=== PATIENT | female | born 1950 | race Caucasian/White ===

== ENCOUNTER 2017-02-26 07:30 | Inpatient (IN) | payer OTHER, MEDICARE ==
[2017-02-26] VITALS (12 sets, daily range): BP systolic 108–169; BP diastolic 52–88; PULSE 47–62; RESP 11–20; O2SAT 96–100
[~2017-02-26] VITALS: Ht 165.1 cm; Wt 128.8 kg
[~2017-02-26 07:30] MED LIST: ACET-2766 PO; Bupivacaine Liposome 1.3% 20 mL Inj INFILTRATE ONE; CHOL5000 PO; CeFAZolin Inj 3 GM in IV Premix IV ONE; HYDR-4003 PO; HYDR12.5 PO; LEVO150T5 PO; LORA10CA PO; LOSA25TA21 PO; Lactated Ringer's 1,000 ML IV ONE; NPR500T PO; OMEP20TA86 PO; OXYB5TAB10 PO; SIMV40TA5 PO; Vancomycin Inj 1,000 MG in IV Premix 1 EACH IV ONE
[2017-02-26] MEDS ORDERED: Lactated Ringer's 1,000 ML IV ONE ×2 (08:08→12:06)
[2017-02-26] MEDS ORDERED: FLUT9.9S NS (08:51)
--- NOTE | 2017-02-26 09:03 | PCM.HPANE ---
Patient Data Surgeon Admitting Provider: Attending Provider:Sameer Gilmore MD Primary Care Physician:Radha Vallejo Other Provider:Rolando Carpio Anesthesia Reason for Visit Right Knee Osteoarthritis RIGHT KNEE OSTEOARTHRITIS Ht/WT & BMI Height (Feet): 5 Height (Inches): 5.00 Weight (Kilograms): 128.800 Body Mass Index 47.00 Allergies Coded Allergies: tetracycline (Verified Allergy, Severe, ANAPHYLAXIS, THROAT SWELLING, ) Past Anesthesia History Anesthesia History: Positive for:: Anesthesia Reactions (N&V BUT NOT W/ MORE RECENT SURGERIES), Denies:: Abnormal Airway, Difficult Intubation, Fam Anesthesia Reaction, Fam Malignant Hypertherm, Malignant Hyperthermia Diabetes History Hx Diabetes?: No MRSA MRSA: No Medications Hypertension Medication: Yes (LOSARTAN,HCTZ) Reported Medications Fluticasone Propionate (Flonase Allergy Relief)50 Mcg/Actuation [place].susp9.9 Ml NS BID 02/26/17 Acetaminophen (Tylenol Arthritis)650 Mg Tablet.er1,300 Mg PO BID PRN prn 02/19/17 Loratadine (Claritin)10 Mg Gfhoegq08 Mg PO DAILY Ref 0 02/19/17 Naproxen 500 Mg Fcw338 Mg PO BID PRN For Pain Ref 0 12/22/14 Levothyroxine 150 Mcg Lfhakh337 Mcg PO DAILY 30 Days Ref 0 12/22/14 Omeprazole 20 Mg Tablet.dr20 Mg PO DAILY 30 Days 12/22/14 Hydrochlorothiazide 12.5 Mg Fltxljk07.5 Mg PO DAILY 30 Days Ref 0 12/22/14 Losartan Potassium 25 Mg Subkrs21 Mg PO DAILY 12/22/14 Simvastatin 40 Mg Jvtwqk14 Mg PO HS 30 Days Ref 0 12/22/14 Hydrocodone-Acetaminophen 5-325 mg 1 Each Tablet1 Each PO Q4 PRN For Pain Ref 0 12/22/14 Oxybutynin Chloride 5 Mg Tablet5 Mg PO DAILY 30 Days Ref 0 12/22/14 Cholecalciferol (Vitamin D3) (Vitamin D3)5,000 Unit Capsule5,000 Unit PO DAILY 12/22/14 Discontinued Reported Medications Acetaminophen 325 Mg Vvqrqet470 Mg PO 02/19/17 Acetaminophen (Acetaminophen 8 Hour)650 Mg Tablet.er1,300 Mg PO BID 12/22/14 History History of ENT Problems?: Yes HEENT History: Positive for:: Cataracts (starting) Sinus Problem (OCCAS S/P NASAL DISLOCATION) Denies:: Abnormal Airway Difficult Intubation Hearing Problem Denture Type: None Teeth Condition: Missing Teeth Other HEENT Pertinent History: S/P T&A Hx of Heart Problems?: Yes Cardiovascular History: Positive for:: Atrial Fibrillation (HX PAT) Chest Pain (LT ARM PAIN 01/2007 MPS WNL EF 82%) Edema (LOWER LEGS & ANKLES LT>RT) Heart Murmur (ASX GR 1-2/6) Hypertension (HYPERLIPIDEMIA) Irregular Heartbeat (HX OF PAT) Denies:: Thrombophlebitis (VARICOSITIES) Valvular Heart Disease Hx of Respiratory Problem?: Yes Respiratory History: Positive for:: Pneumonia (HX OF-REMOTELY ) Use of C-PAP Machine (SNORES) Hx Neurologic Problems?: Yes Neurological History: Positive for:: Headaches (RARE) Denies:: CVA Hx of GI Problems?: No Hx of Problems?: Yes Genitourinary History: Positive for:: Urinary Tract Infection (REMOTE HX) HX of Peritoneal Dialysis: No Female Hx: Denies:: Currently (S/P ELECTIVE TERMINATION) Endometriosis (S/P HYSTEROSCOPY,ENDOMETRIAL POLYPECTOMY) Skin History: Denies:: History Skin Disorders? Pressure Ulcers Hx Musculoskeletal Problems?: Yes Musculoskeletal History: Positive for:: Degenerative Joint Joint Replacement (S/P LT TKA) Musculoskeletal Trauma (HX FX RT CLAVICLE,FX TOES S/P RT BICEPS TENDON RPR ,BILAT KNEE SCOPES) Osteoarthritis (RT KNEE=CURRENT PROBLEM) Hx of Psycho/Social Problems?: Yes Psycho Social History: Positive for:: Anxiety Hx Depression (REMOTE HX) Hx Surgeries?: Yes (T&A,THYROIDECTOMY,RT BICEPS TENDON RPR,B/L KNEE SCOPES, HYSTEROSCOPY,LT TKA) Hx Any Other Health Problems?: Yes Other History: Positive for:: Hospitalization Thyroid Disease (S/P TOTAL THYROIDECTOMY) Denies:: Cancer Endocrine Disease History Blood Transfusions: Denies:: Blood Transfusions Hx Diabetes: No Hx Alcohol Use: YesHx Substance Use: No (NONE SINCE COLLEGE) Smoking Status: Never Smoker Have You Smoked inLast 12 mo: No Stop/Bang Treated for Sleep Apnea?: No Do You Have a CPAP Machine?: No S-Snoring: Do You Snore Loudly: Yes T-Tired: feel tired, fatigued: No O-Obsered: Observed not breath: No P-Blood Pressure: treated: Yes B- Body Mass Index > 35 kg/m2: Yes A- Age over 50: No N- Neck Large Circumference: Yes G- Gender Male: No CORKY Total Score: 5 CORKY Risk Assessment: High Risk, =/>3 Yes Risk Assessment Category Category 1A: Patient has history of documented sleep apnea, and HAS NOT received any narcotic, sedative or anesthesia administration during this stay. Category 1B: Patient has history of documented sleep apnea, and HAS received any narcotic , sedative or anesthesia administration during this stay Category 2: Patient has SUSPECTED Obstructive Sleep Apnea, and HAS received any narcotic , sedative or anesthesia administration during this stay. Category 3: Patient has SUSPECTED Obstructive Sleep Apnea and HAS NOT received narcotic, sedative or anesthesia administration during this stay. Category 4: Outpatient in Procedural Areas with known sleep apnea or who screen positive for High Risk via the STOP/BANG questionnaire. Exam Exam Vital Signs Vital Signs Date Time Temp Pulse Resp B/P Pulse Ox O2 Delivery O2 Flow Rate FiO2 02/26/17 08:22 35.9 54 19 169/71 98 Room Air General Appearance: Oriented X3 HEENT/AIRWAY: MP 2 Lungs: Normal Air Movement Heart: Regular Rate/Rhythm Meds/Labs/Diagnostics Admission Meds Current Medications Vancomycin/0.9 % Sod Chloride 1000 mg/Premix 200 ml @ 133.333 mls/hr PREOP ONCE IV Last administered on 02/26/17 08:39; Start 02/26/17 at 06:00; Stop 06/05 at 07:29; Status DC Lactated Ringer's (Lr) 1,000 ml @ ud STK-MED ONCE IV Last administered on 02/26 08:08; Start 02/26/17 at 08:08; Stop 02/26/17 at 08:09; Status DC Plan Impression Patient chart reviewed, patient interviewed and anesthestic plan with risks, benefits, and alternatives discussed, and informed consent obtained. ASA Physical Status: ASA3 Severe Disease Anesthetic Plan: Regional Block, SAB Bene/Risks/Altern/Consents: Yes HP Complete Prior to Induction: Yes Carlo Rose MD Feb 26, 2017 09:03
[2017-02-26] MEDS ORDERED: Gentamicin 40 mg/mL 2 mL Inj IRRIGATION ONE (11:08)
[2017-02-26] MEDS ORDERED: Bupivacaine-MPF 0.25% 30 mL Inj INFILTRATE ONE (11:09)
[2017-02-26] MEDS ORDERED: Bupivacaine Liposome 1.3% 20 mL Inj INFILTRATE ONE (11:09)
[2017-02-26] MEDS ORDERED: Lactated Ringer's 500 ML IV PRN (12:26)
[2017-02-26] MEDS ORDERED: Lactated Ringer's 1,000 ML IV SCH (12:26)
[2017-02-26] MEDS ORDERED: MetoCLOpramide 5 mg/mL 2 mL Inj IVPUSH PRN (12:30)
[2017-02-26] MEDS ORDERED: Ondansetron 2 mg/mL 2 mL Inj IVPUSH PRN (12:30)
[2017-02-26] MEDS ORDERED: EPHEDrine Sulfate 50 mg/mL Inj IVPUSH PRN (12:30)
[2017-02-26] MEDS ORDERED: Dexamethasone 4 mg/mL Inj IVPUSH PRN (12:30)
[2017-02-26] MEDS ORDERED: HYDROmorphone 1 mg/mL Inj IVPUSH PRN (12:30)
[2017-02-26] MEDS ORDERED: Phenylephrine 10,000 mCg/mL Inj IVPUSH PRN (12:30)
[2017-02-26] MEDS ORDERED: fentaNYL-PF 50 mCg/mL 2 mL Inj IVPUSH PRN (12:30)
[2017-02-26] MEDS ORDERED: Dexamethasone 4 mg/mL Inj ONE (12:48)
[2017-02-26] MEDS ORDERED: Propofol 10,000 mCg/mL 20 mL Inj ONE (12:48)
[2017-02-26] MEDS ORDERED: Ketamine 10 mg/mL 20 mL Inj ONE (12:48)
[2017-02-26 13:17] LABS: APPEARANCE,URINE HAZY (CLEAR,HAZY); COLOR,URINE STRAW (YELLOW); OCCULT BLOOD,URINE NEGATIVE (NEGATIVE); PH,URINE 5.5 (5.0-8.0); UROBILINOGEN,URINE NORMAL (NORMAL)
--- NOTE | 2017-02-26 13:19 | DRSVH ---
PROCEDURE: X-RAY RIGHT KNEE, ONE OR TWO VIEWS ([id number]) INDICATIONS: check alignment TECHNIQUE: 2 view(s) of the knee acquired. COMPARISON: 06/21/2016 FINDINGS: Bones: Patient is status post knee joint arthroplasty. Hardware components are in expected position s. Visualized bony structures are intact. Soft tissues: Overlying postoperative changes are noted. IMPRESSION: Acute postoperative changes of total right knee arthroplasty. Dictated by: Carlos Almanza M.D. on 02/26/2017 at 13:16 Approved by: Carlos Almanza M.D. on 02/26/2017 at 13:17
--- NOTE | 2017-02-26 13:30 | NUR ---
Arrival to Rm 1022 Pt arrived from PACU to room 1022; A&Ox3, VSS, IV LR infusing at 120/hr; no c/o pain, ice R knee area, R knee covered in maryjane wrap; drain clamped until 1700pm. Will continue to monitor with frequent rounds.
--- NOTE | 2017-02-26 13:34 | PCM.ANEP1 ---
Post Anesthesia PACU Phase 1 Assessment Vital Signs Vital Signs Date Time Temp Pulse Resp B/P Pulse Ox O2 Delivery O2 Flow Rate FiO2 02/26/17 13:05 47 14 125/70 99 Room Air 02/26/17 13:00 36.4 52 15 137/57 96 Room Air 02/26/17 12:45 53 15 127/74 96 Room Air 02/26/17 12:40 52 20 118/64 98 Room Air 02/26/17 12:38 11 98 02/26/17 12:35 50 11 109/53 98 Room Air 02/26/17 12:30 52 12 108/52 96 Room Air 02/26/17 12:25 36.5 55 11 111/88 96 Room Air 02/26/17 08:22 35.9 54 19 169/71 98 Room Air Anesthetic Administered: Regional Block, SAB Level of Alertness: Awake, talking Pain: No Nausea or Vomiting: No CV Function & Hydration Stable: Yes Airway Device: Lungs: Normal Air Movement Dermatome Level: T12 (Symphysis Pubis) PACU Phase 2 Assessment Patient Instructions Provided: N/A Carlo Rose MD Feb 26, 2017 13:34
[2017-02-26] MEDS ORDERED: MetoCLOpramide 5 mg/mL 2 mL Inj IV PRN (14:05)
[2017-02-26] MEDS ORDERED: Ondansetron 2 mg/mL 2 mL Inj IV PRN (14:05)
[2017-02-26] MEDS ORDERED: oxyCODONE-Acetamin 5-325 mg Tablet PO PRN (14:05)
[2017-02-26] MEDS ORDERED: diphenhydrAMINE 25 mg Capsule PO PRN (14:05)
[2017-02-26] MEDS ORDERED: Alum-Mag Hydrox-Simeth 30 mL Suspension PO PRN (14:05)
[2017-02-26] MEDS ORDERED: Magnesium Hydroxide 10 mL Oral Concentration PO PRN (14:05)
[2017-02-26] MEDS ORDERED: LORazepam 0.5 mg Tablet PO PRN (14:05)
[2017-02-26] MEDS ORDERED: Ondansetron 8 mg ODT Tablet PO PRN (14:05)
--- NOTE | 2017-02-26 15:58 | NUR ---
Evaluation completed. Please go to "Notes" then click on "Assessments and Notes" (bottom left corner of screen). Then select appropriate discipline tab on top of screen.
[2017-02-26] MEDS: HYDROcodone-APAP 5-325 mg Tablet PO PRN ×2 (16:14→21:36)
--- NOTE | 2017-02-26 18:28 | NUR ---
Pain Pt c/o post op pain 5/10, R knee/leg area; ppp, warm and good cap refil bilaterally. 1 PO [place] given for pain; per pt effective, pain 3/10. Will continue to monitor with frequent rounds.
--- NOTE | 2017-02-26 23:13 | OP ---
[address] [address] OPERATIVE REPORT PATIENT: REED SMITH : 1950 MR#: [id number] ADMIT: 02/26/2017 JOB ID: [id number] DATE OF SURGERY: 02/26/2017 PREOPERATIVE DIAGNOSIS(ES): Disabling osteoarthritis right knee. POSTOPERATIVE DIAGNOSIS(ES): Disabling osteoarthritis right knee. PROCEDURE: Total knee replacement. SURGEON: Sameer Gilmore MD. FILLER FEEDER: Abi Williamson PA-C. Translator And Interpreter required due to the complexity of the operation. PROCEDURE: Right total knee replacement. INDICATION: This woman has failed conservative treatment. She has ongoing progressive and now significant disability and wishes to proceed with a total knee replacement. She understands and accepts the potential for risks and complications, which include, but is not limited to, infection, thromboembolic, neurovascular events, as well as potential for implant failure. Understanding these, she wishes to proceed. PROCEDURE: The patient was prepped and draped in usual sterile fashion. She is a very large woman and additional time and care was taken in positioning. After appropriate positioning, sterile prepping and draping, and appropriate time-out, an anteromedial approach was made in the knee. The patella was subluxed laterally, cut transversely, sized to a 35. Drill holes were made and patellar protection plate was utilized. Drill hole placed in distal femur, 5 degree valgus and distal femoral cut was made. The femur was sized to an 8 component. Chamfer block was fixed and chamfer cuts were made after appropriate position and rotation of the femoral component. An 8 was trialed and fit excellently. Lug holes were drilled. The tibia was cut with the extramedullary jig. Bone fragment removed. Sized to an E tibial block. Trial reduction was performed. An 11 mm polyethylene produced excellent flexion, extension, balance, range of motion and soft tissue tension. Drill hole and punch was utilized for tibial preparation. Pressurized lavage was followed by pressurized cementation. Excess cement was removed during the curing process and the final construct was assembled. Cut margins were injected with Marcaine and Exparel mix. Betadine dilute lavage according to protocol. Deep Hemovac drain left. Deep closure with #2 Quill followed by a 2-0, 3-0, 4-0 and intracuticular stitch utilized for the final closure. Patient tolerated the procedure well. There were no complications.
[2017-02-27] MEDS ORDERED: Vancomycin Inj 1,000 MG in IV Premix 1 EACH IV ONE (00:15)
[2017-02-27] MEDS: CEFAZOLIN IV SCH ×2 (00:32→11:22)
[2017-02-27] MEDS: PHA MIX IV SCH ×2 (00:32→11:22)
[2017-02-27] MEDS: DEXTROSE 5% IV SCH ×2 (00:32→11:22)
[2017-02-27 01:04] VITALS: BP 126/73; PULSE 54; RESP 18; O2SAT 96
[2017-02-27] MEDS: hydrOXYzine Pamoate 25 mg Capsule PO PRN ×6 (02:15→21:21)
[2017-02-27] MEDS: HYDROcodone-APAP 5-325 mg Tablet PO PRN ×5 (02:15→23:52)
--- NOTE | 2017-02-27 04:28 | NUR ---
Pain/activity Pt reporting pain up to 5/10 and has been taking 1 tab of [place] q4 hrs. Pt did wake up with cramping in right knee and requested Vistaril. Pt now sleeping and appears comfortable. Pt up to side of bed at beginning of shift to dangle feet. Orthos intact and pt has full sensation. ARTEMIO wrap is CDI and hemovac drain intact with sanguinous drainage. Whiteside with pale urine draining to gravity.
[2017-02-27 05:53] VITALS: BP 151/79; PULSE 52; RESP 18; O2SAT 99
[2017-02-27 06:55] LABS: BASOPHILS % (AUTO) 0.1 % (0-3); EOSINOPHILS % (AUTO) 0 % (0-5); MONOCYTES % (AUTO) 6.5 % (4-12); Mean Corpuscular Hemoglobin 27.2 pg (27.0-35.0); Mean Corpuscular Volume 85.1 fL (81-100); Platelet Count 232 bil/L (150-400)
[2017-02-27 07:46] VITALS: BP 162/66; PULSE 50; RESP 18; O2SAT 98
[2017-02-27] MEDS: Pantoprazole 40 mg ER24 Tablet PO SCH (09:57)
[2017-02-27] MEDS: Fluticasone 0.05% 15 Spray/2 Gm 16 Gm Nasal Spray NOSTRIL SCH ×2 (09:58→10:02)
[2017-02-27 11:57] VITALS: BP 113/65; PULSE 54; RESP 18; O2SAT 99
--- NOTE | 2017-02-27 12:51 | PCM.PNORTH ---
Subjective Date of Service: Feb 27, 2017 Visit Information: Reason for Visit Right Knee Osteoarthritis Surgery/Surgery Date R TKA 02/26/17 Post-Op Day # 1 Date of Admission: Feb 26, 2017 at 12:47 Hospital Day # Subjective Patient states she is having pain but tolerable. She states she is hoping she can go tomorrow as she was walking "all over the hallways" with PT. She states she cannot wear compression stockings as "my legs are too fat" and has agreed to use two maryjane wraps from toes to thigh instead. 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 Postop General: No Complaints, No Shortness of Breath Pain Management: PO Objective Exam Objective Sitting up in chair Vital Signs and I/O Vital Sign - Last Date Time Temp Pulse Resp B/P Pulse Ox O2 Delivery O2 Flow Rate FiO2 02/27/17 11:57 36.6 54 18 113/65 99 Room Air Intake and Output 02/26/17 02/26/17 02/27/17 Cumulative From/Thru 15:00 23:00 07:00 02/19/17 11:58 - 02/27/17 05:53 Intake Total 1360 ml 945 ml 1390 ml 3695 ml Output Total 200 ml 900 ml 750 ml 1850 ml Balance 1160 ml 45 ml 640 ml 1845 ml Intake Oral 400 ml 700 ml 1100 ml IV Total 1360 ml 545 ml 690 ml 2595 ml Output Urine Total 100 ml 900 ml 650 ml 1650 ml Drainage Total 100 ml 100 ml Estimated Blood Loss 100 ml 100 ml # Bowel Movements 0 0 Lab & Micro Results Laboratory Tests Test 02/26/17 13:01 02/27/17 06:10 Urine Color Straw (YELLOW) Urine Appearance Hazy (CLEAR,HAZY) Urine pH 5.5 (5.0-8.0) Urine Specific [place] 1.005 (1.003-1.035) Urine Protein Negativemg/dL (NEG,TRACE) Urine Glucose (UA) Negativemg/dL (NEGATIVE) Urine Ketones Negativemg/dL (NEGATIVE) Urine Occult Blood Negative (NEGATIVE) Urine Nitrite Negative (NEGATIVE) Urine Bilirubin Negative (NEGATIVE) Urine Urobilinogen Normalmg/dL (NORMAL) Urine Leukocyte Esterase Negative (NEGATIVE) Urine RBC 0-2/hpf (0-2) Urine WBC 0-5/hpf (0-5) Urine Epithelial Cells Occasional/hpf (NONE-MOD) Urine Crystals None seen (NONE SEEN) Urine Bacteria None/hpf (NONE-FEW) Urine Hyaline Casts None/lpf (NONE) Urine Granular Casts None seen (NONE SEEN) Urine Waxy Casts None seen (NONE SEEN) Urine Red Blood Cell Casts None seen (NONE SEEN) Urine White Blood Cell Casts None seen (NONE SEEN) Urine Mucus None seen (None Seen) Urine Trichomonas None seen (NONE SEEN) Urine Yeast None (NONE SEEN) Urinalysis Comment None Urine Culture Reflexed Not indicated White Blood Count 10.0th/mm3 (3.8-10.1) Red Blood Count 4.04mil/mm3 (3.90-5.20) Hemoglobin 11.0g/dL (12.0-15.6) Hematocrit 34.4% (35.0-46.0) Mean Corpuscular Volume 85.1fL (81-100) Mean Corpuscular Hemoglobin 27.2pg (27.0-35.0) Mean Corpuscular Hemoglobin Concent 32.0% (32.0-37.0) Red Cell Distribution Width 13.6% (12.3-15.4) Platelet Count 232bil/L (150-400) Neutrophils (%) (Auto) 85.0% (40-74) Lymphocytes (%) (Auto) 8.1% (14-46) Monocytes (%) (Auto) 6.5% (4-12) Eosinophils (%) (Auto) 0% (0-5) Basophils (%) (Auto) 0.1% (0-3) Result Diagram: 02/27/17 0610 General Appearance: Alert, Oriented X3, Cooperative, No Acute Distress Extremities: Distal Pulses Palpable, No Compartment Syndrom Noted Postop Sensory Motor: Distal Motor Intact, Movement in Toes, Distal Sensation Intact, NVI Distally SURGICAL WOUND : Wound Location/Description Perioperative dressing clean dry and intact Drain Location Body Site: Knee Wound Drainage Type: Hemovac Activity: Ambulate with PT Assessment & Plan Impression POD#1 right total knee arthroplasty Problems: Plan Weightbearing: Weightbearing as tolerated with a front-wheeled walker DVT prophylaxis: Aspirin 81 mg twice a day 6 weeks Physical therapy for transfers, progressive ambulation, strengthening Wound care: Perioperative dressings will be changed to an island dressing tomorrow. Then wrap leg with double maryjane wraps from toes to thigh for compression. Analgesia: Oral analgesia Discharge plan: Discharge home tomorrow. Start outpatient physical therapy on Sunday. Follow-up plan: In 2 weeks at [facility] with ABILIO for wound check and at [address] Gilmore with x-rays Rhonda Jesus PA-C Feb 27, 2017 12:48
--- NOTE | 2017-02-27 16:16 | NUR ---
Social Work- Brief Note/Multi-Disciplinary Rounds Data: EMR reviewed. Pt is on day 1 of hospitalization for right knee TKA. Pt is POD 1. Pt's insurance is [employer]. Pt's PCP is Radha Vallejo PA-C. Pt's NOK is Ari Sommer, . Pt's readmit risk score is 3-high risk. Per multi-disciplinary rounds with construction code administrator, pt is going to work with PT today. No social work needs identified in rounds. SW met with pt at bedside regarding discharge plan. Pt alert and oriented x3. Pt resides in [place], [place] with her spouse (who is disabled). Pt drives. Pt has no steps inside and 3 steps to enter. Pt's home is ADA accommodating- pt has a walk in shower, raised toilet seats, bath bench, hand held shower, fww, crutches, and cane at home. Pt has history with [facility] after her first knee replacement. Pt has no SNF history. Pt is very motivated. PT worked with pt, pt walked 100 feet with fww. PT recommending HHPT 2-3 times per week. Pt has DPOA paperwork at home, SW encouraged pt to provide a copy to hospital. SW discussed pt's plan at home. Pt's is not able to drive and so until pt is able to drive after her surgery she will be homebound. For this reason, pt had HHPT through [facility] after her first TKA. [facility] SW explained order process and pt is agreeable. ALLYSON recommends HHPT until pt is able to obtain outpt PT services. SW will discuss with Ortho tomorrow. Pt to discharge home with her sister to transport via POV. SW will continue to follow. Assessment: Pt for whom ALLYSON recommends HHPT until she is able to drive to outpt PT. Plan: ALLYSON recommends HHPT until pt is able to obtain outpt PT services. ALLYSON will discuss with Ortho tomorrow. Pt to discharge home with her sister to transport via POV. SW will continue to follow. Tayla Giraldo CUTTER HELPER
[2017-02-27 17:22] VITALS: BP 149/73; PULSE 53; RESP 18; O2SAT 98
--- NOTE | 2017-02-27 17:32 | NUR ---
Whiteside / hemovac Whiteside catheter removed at approx 1330. Pt spontaneously voiding. No complications. Hemovac removed per MD order. Drain removed intact. Minor bleeding at site after removal. Leg continues to be dressed and wrapped in maryjane wrap.
[2017-02-27 19:58] VITALS: BP 135/73; PULSE 56; RESP 18; O2SAT 99
--- NOTE | 2017-02-28 02:43 | NUR ---
Pain During initial assessment, patient needed to use bathroom. Patient ambulated well to , however, on return to bed, pain increased to 8/10 on pain scale. Roxycodone 5mg PO and Vistaril 25mg administered. Patient appeared to be crying with pain due to muscle spasm. Patient requested an additional Vistaril. Ice pack applied. Leg elevated on pillows. VSS. Call light within reach. Care continues.
--- NOTE | 2017-02-28 02:43 | NUR ---
Initial Assessment Correction on time of initial assessment. I assessed patient at 2022.
[2017-02-28 04:58] VITALS: BP 127/75; PULSE 52; RESP 17; O2SAT 98
[2017-02-28 07:40] VITALS: BP 135/76; PULSE 46; RESP 17; O2SAT 100
--- NOTE | 2017-02-28 07:53 | PCM.PNORTH ---
Subjective Date of Service: Feb 28, 2017 Visit Information: Reason for Visit Right Knee Osteoarthritis Surgery/Surgery Date R TKA 02/26/17 Post-Op Day # 2 Date of Admission: Feb 26, 2017 at 12:47 Hospital Day # Subjective Patient did well with physical therapy yesterday and ambulated over 100 feet in the hallways. Last night she had an increase in pain after the block wore off but this morning is doing better. The thigh muscles are sore but manageable with [place]. She would like to go home today. Her is disabled and does not drive. She requests home health physical therapy until she is able to go to outpatient therapy on her own. Since it was her right knee that has surgery , anticipate she will need Home Health PT for 1 month. Postop General: No Complaints, No Shortness of Breath Pain Management: PO Objective Exam Objective Patient is seen sitting up in a chair Vital Signs and I/O Vital Sign - Last Date Time Temp Pulse Resp B/P Pulse Ox O2 Delivery O2 Flow Rate FiO2 02/28/17 04:58 36.4 52 17 127/75 98 Room Air Intake and Output 02/27/17 02/27/17 02/28/17 Cumulative From/Thru 15:00 23:00 07:00 02/19/17 11:58 - 02/28/17 04:58 Intake Total 940 ml 500 ml 5135 ml Output Total 400 ml 270 ml 2520 ml Balance 540 ml 230 ml 2615 ml Intake Oral 940 ml 500 ml 2540 ml IV Total 2595 ml Output Urine Total 400 ml 270 ml 2320 ml Drainage Total 0 ml 100 ml Estimated Blood Loss 100 ml # Voids 1 1 # Bowel Movements 0 0 Result Diagram: 02/27/17 0610 General Appearance: Alert, Oriented X3, Cooperative, No Acute Distress Extremities: Distal Pulses Palpable, No Compartment Syndrom Noted, Tenderness/ Swelling Noted (at knee, as expected) Postop Sensory Motor: Distal Motor Intact, Distal Sensation Intact, NVI Distally SURGICAL WOUND : Drain Location Body Site: Knee Wound Drainage Type: Hemovac Activity: Ambulate with PT Assessment & Plan Impression POD #2 right total knee arthroplasty Problems: Plan Weightbearing: Weightbearing as tolerated with walker DVT prophylaxis: aspirin 325 mg twice a day 6 weeks Physical therapy for transfers, progressive ambulation, therapeutic exercise. Patient is progressing well with physical therapy. Wound care: Dressings changed today to an island dressing Discharge plan: Discharge home today. Start physical therapy next week on Sunday Discharge instructions are reviewed with the patient She has both Percocet and [place] at home and does not feel she needs any new prescriptions at this time. She would like a prescription for Vistaril to help with the muscle spasms of the thigh. She will will also be on aspirin for 6 weeks for DVT prophylaxis. Since the patient's is disabled and cannot drive, home health physical therapy is ordered. Anticipate patient will need home health physical therapy twice a week for 1 month to work on range of motion, therapeutic exercise, progressive ambulation and proprioceptive training. In one month patient will be allowed to drive and at that time she may attend outpatient therapy. Follow-up plan: In 2 weeks at [facility] with ABILIO for wound check and at [address] Gilmore with x-rays Pain Management: Percocet, oxycodone, [place], Vistaril, Toradol VTE Prophylaxis: SCDs, Other (aspirin 325 mg twice a day) Resuscitation Status: CPR: Attempt Resuscitation OmenaAbi Phillips PA-C Feb 28, 2017 07:53
[2017-02-28] MEDS: HYDROcodone-APAP 5-325 mg Tablet PO PRN ×2 (08:13→11:44)
[2017-02-28] MEDS: Pantoprazole 40 mg ER24 Tablet PO SCH (08:14)
[2017-02-28] MEDS: Fluticasone 0.05% 15 Spray/2 Gm 16 Gm Nasal Spray NOSTRIL SCH (08:30)
--- NOTE | 2017-02-28 09:13 | PCM.DIORTH ---
Ortho Discharge Instruction Date of Service: Feb 28, 2017 Dates of Hospitalization Date of Hospital Admission Feb 26, 2017 at 12:47 Providers Admitting Physician: Sameer Gilmore MD Primary Care Physician: Radha Vallejo Attending Physician: Sameer Gilmore MD Diet Discharge Diet: No restrictions Activity Discharge Activity-General: Be up and about, Balance rest and activity, Elevate & ice extremity (ice 6-10 times per day) Right Lower Extremity: Weight Bearing as tolerated Discharge Assist Device: Front Wheeled Walker Dressing and Incisional Care Discharge Dressing Care: Keep dressing clean, dry & intact Discharge Hygiene: May shower (see instructions below), DO NOT soak incision under water (for 2 weeks), NO bathtub, hot tub or whirlpool (for 2 weks) Additional Instructions Discharge Instructions Weightbearing: Weightbearing as tolerated with walker DVT prophylaxis: aspirin 325 mg twice a day 6 weeks Wound care: change dressings in 2 days. Reuse the silver dressing after wetting it with the saline flush, apply a new Island dressing (08/21). The drain site will not any further dressing. Use the silver dressing for 1 more week Wear elastic bandages to help control swelling for 1 month on the surgical leg. Showering: Cover the wound with plastic wrap She has both Percocet and [place] at home and does not feel she needs any new prescriptions at this time. She would like a prescription for Vistaril to help with the muscle spasms of the thigh. She will will also be on aspirin for 6 weeks for DVT prophylaxis. Start physical therapy next week on Sunday. Since the patient's is disabled and cannot drive, home health physical therapy is ordered. Anticipate patient will need home health physical therapy twice a week for 1 month to work on range of motion, therapeutic exercise, progressive ambulation and proprioceptive training. In one month patient will be allowed to drive and at that time she may attend outpatient therapy. Follow Up Plan Follow Up Plan Follow-up plan: In 2 weeks at [facility] with ABILIO for wound check and at [address] Gilmore with x-rays Call your provider for: Fever, Chills, Shortness of breath, Vomitting, Drainage at incision, Wound redness (that is psreading), Increasing pain (for no reason) Abi Williamson PA-C Feb 28, 2017 09:13
--- NOTE | 2017-02-28 09:15 | PCM.DC.ORT ---
Discharge Summary Date of Service: Feb 28, 2017 Date of Hospital Admission: Feb 26, 2017 at 12:47 Date of Surgery: Feb 26, 2017 Date of Discharge: Feb 28, 2017 Reason for Hospitalization: Right knee arthritis Procedures Performed: Right total knee arthroplasty Hospital Course: The patient was admitted to the hospital on 02/26/2017 and underwent the above procedure. Antibiotic prophylaxis consisting of Ancef and vancomycin. The surgeon was Dr. Gilmore. A Whtieside was placed perioperatively. Patient tolerated the procedure well and was transferred to recovery room in stable condition. Whiteside was discontinued on postop day 1. Patient had physical therapy to work on ambulation and transfers. Weightbearing as tolerated with walker. Pain was managed with Dilaudid, Percocet, Vistaril, Toradol, [place]. DVT prophylaxis: Aspirin 325 mg twice a day and SCDs. Patient progressed well with physical therapy and on POD-2 was discharged home with home health physical therapy. Follow-up: at [facility] 2 weeks postop for wound check and at [address] Gilmore with x-ray Diagnosis at Time of Discharge Status post right TKA Problems: Disposition: Discharged home with home health physical therapy Discharge Instructions: Activity Discharge Activity-General: Be up and about, Balance rest and activity, Elevate & ice extremity (ice 6-10 times per day) Right Lower Extremity: Weight Bearing as tolerated Discharge Assist Device: Front Wheeled Walker Dressing and Incisional Care Discharge Dressing Care: Keep dressing clean, dry & intact Discharge Hygiene: May shower (see instructions below), DO NOT soak incision under water (for 2 weeks), NO bathtub, hot tub or whirlpool (for 2 weks) Additional Instructions Discharge Instructions Weightbearing: Weightbearing as tolerated with walker DVT prophylaxis: aspirin 325 mg twice a day 6 weeks Wound care: change dressings in 2 days. Reuse the silver dressing after wetting it with the saline flush, apply a new [place] dressing (08/21). The drain site will not any further dressing. Use the silver dressing for 1 more week Wear elastic bandages to help control swelling for 1 month on the surgical leg. Showering: Cover the wound with plastic wrap She has both Percocet and [place] at home and does not feel she needs any new prescriptions at this time. She would like a prescription for Vistaril to help with the muscle spasms of the thigh. She will will also be on aspirin for 6 weeks for DVT prophylaxis. Start physical therapy next week on Sunday. Since the patient's is disabled and cannot drive, home health physical therapy is ordered. Anticipate patient will need home health physical therapy twice a week for 1 month to work on range of motion, therapeutic exercise, progressive ambulation and proprioceptive training. In one month patient will be allowed to drive and at that time she may attend outpatient therapy. Aspirin (Aspirin) 325 Mg Tablet 325 MG PO BID for 6 weeks after surgery Cholecalciferol (Vitamin D3) (Vitamin D3) 5,000 Unit Capsule 5,000 UNIT PO DAILY Docusate Sodium (Colace) 100 Mg Capsule 100 MG PO BID PRN PRN For Constipation Fluticasone Propionate (Flonase Allergy Relief) 50 Mcg/Actuation [place].susp 9.9 ML NS BID Hydrochlorothiazide (Hydrochlorothiazide) 12.5 Mg Capsule 12.5 MG PO DAILY Hydrocodone-Acetaminophen 5-325 mg (Hydrocodone-Acetaminophen 5-325 mg) 1 Each Tablet 1 EACH PO Q4 PRN PRN For Pain Hydroxyzine Pamoate (HydrOXYzine Pamoate) 25 Mg Capsule 25-50 MG PO Q6H PRN PRN For Restlessness Levothyroxine (Levothyroxine) 150 Mcg Tablet 150 MCG PO DAILY Loratadine (Claritin) 10 Mg Capsule 10 MG PO DAILY Losartan Potassium (Losartan Potassium) 25 Mg Tablet 50 MG PO DAILY Omeprazole (Omeprazole) 20 Mg Tablet.dr 20 MG PO DAILY Oxybutynin Chloride (Oxybutynin Chloride) 5 Mg Tablet 5 MG PO DAILY Simvastatin (Simvastatin) 40 Mg Tablet 40 MG PO Abi Williamson PA-C Feb 28, 2017 09:15
[2017-02-28] MEDS ORDERED: DOCU-41 PO (09:19)
[2017-02-28] MEDS ORDERED: HYDR-3797 PO (09:19)
[2017-02-28] MEDS ORDERED: ASPI325T32 PO (09:19)
[2017-02-28 11:21] VITALS: BP 134/71; PULSE 51; RESP 16; O2SAT 100
--- NOTE | 2017-02-28 11:38 | NUR ---
Social Work- Discharge/Multi-Disciplinary Rounds Data: EMR reviewed. Pt is on day 2 of hospitalization for right knee TKA. Pt is POD 2. Per multi-disciplinary rounds and discussion with Ortho, pt is medically ready for discharge. identified medical need for HHPT twice per week for 4 weeks. ALLYSON acknowledges order. SW and pt spoke about HH yesterday (as pt anticipated that she would need this at discharge) and pt requested referral to [facility] at discharge once TRANSPORTATION DEPARTMENT SUPERVISOR received order. Today, TRANSPORTATION DEPARTMENT SUPERVISOR made referral to [facility] for PT 2 times weekly for 4 weeks. T/C to [facility] regarding pt's discharge. [facility] is able to accept pt onto service but it will be 72 hours until a PT is able to see pt. Ortho provider confirmed that this would be appropriate. [facility] agreeable. F2F completed and faxed to [facility]. Copy placed in pt's chart. Original to be given to [facility]. ALLYSON met with pt at bedside regarding discharge and [facility]. Pt is agreeable to discharge. Pt aware the [facility] will contact her directly to set up a time and she is also aware that it will likely be 72 hours before service begins. Pt agreeable. Pt denied any questions or concerns related to discharge. Pt to discharge home with her sister to transport via POV. No additional discharge needs identified. Assessment: Pt for whom HHPT 2x weekly for 4 weeks is medically necessary Plan: [facility] to begin PT services is 72 hours. F2F provided. Pt to discharge home with her sister to transport via POV. No additional discharge needs identified. Tayla Giraldo, TRANSPORTATION DEPARTMENT SUPERVISOR
[2017-02-28] MEDS: hydrOXYzine Pamoate 25 mg Capsule PO PRN (12:44)
--- NOTE | 2017-02-28 12:48 | NUR ---
Discharge Pt to discharge to home with friend; A&Ox3, able to GARCIA, standing and amb with SBA and FWW. 1 IV access discontinued. Pt reports pain at tolerable level before discharge. Pt has hard copy of Rx's and copy in the charge; pt given written and verbal discharge instructions as well as supplies for dressing changes and states understanding to discharge instructions, medications to be taken, dosages and times and f/u appt. Pt to stop taking Naproxen and Tylenol, no restrictions on diet, activity as tolerated but to rest and balance activity with rest, weight bearing as tolerated and amb with FWW, keep dressing CDI, DO soak incision under water of any kind for 2 weeks, keep dressing site covered for shower, take ASA 325mg BID gfor 6 weeks, dressing change in 2 days, wear elastic bandages to help control swelling for 1 month on surgical leg; no driving for 1 month, PT, f/u appt in 2 weeks then again in 6 weeks with pili Simmons to which pt states understanding. Addendum: 02/28/17 at 1257 by GERSON COSTELLO RN Pt wheeled off unit by aide with all belongings.
== END 2017-02-28 12:53 | disposition home health service (06) | DRG 470 ==
LOC: SAS 07:30 → OSC 12:47
PROVIDERS: ADMIT Orthopaedic Surgery; ATTEND Orthopaedic Surgery
PROC: 0SRC0J9 Replacement of Right Knee Joint with Synthetic Substitute, Cemented, Open Approach (ICD-10-PCS; principal; 2017-02-26 10:00)
DX: M17.11 Unilateral primary osteoarthritis, right knee (principal)